=== PATIENT | female | born 1985 | race Caucasian/White ===

== ENCOUNTER 2017-07-04 11:04 | Inpatient (IN) | payer MEDICAID, OTHER ==
[2017-07-04] MEDS ORDERED: KETAMINE 500 MG/10 ML VIAL IM ONE ×2 (11:06)
--- NOTE | 2017-07-04 11:22 | EDPHY ---
H & P Time Seen by Provider: 07/04/17 11:06 Constitutional: Initial Vital Signs Temperature (C) 36.5 C 07/04/17 11:06 Heart Rate 90 07/04/17 11:06 Respiratory Rate 16 07/04/17 11:06 Blood Pressure 126/92 H 07/04/17 11:06 O2 Sat (%) 98 07/04/17 11:06 O2 Delivery Mode Room Air Allergies/Adverse Reactions: Unable to Assess Allergy (Unverified 07/04/17 11:38) Home Medications: Medication Instructions Recorded Unobtainable 07/04/17 Medical Decision Making ED Course/Re-evaluation: CHIEF COMPLAINT: Psychiatric evaluation HISTORY OF PRESENT ILLNESS: 40-year-old female who is not giving us her name. She was at a [employer] acting out. The police were called. She would not leave. They brought her here. She apparently attempted to grab 1 of the officers testicles. She was brought in restraints here. She is uncontrollable and belligerent and noncooperative and is requiring 4 point restraints still. She will not answer any questions. REVIEW OF SYSTEMS: A 10 point review of systems was performed but the patient will not answer any questions PHYSICAL EXAM: General Appearance: Alert, well hydrated, appropriate, and non-toxic appearing. She is unkept and dirty Head: Atraumatic without scalp tenderness or obvious injury Eyes: Pupils equal, round, reactive to light and accommodation, EOMI, no trauma , no injection. Ears: Clear bilaterally, no perforation, normal landmarks Nose: Atraumatic, no rhinorrhea, clear. Throat: There is no erythema or exudates, no lesions, normal tonsils, mucus membranes moist. Neck: Supple, 2+ carotid upstroke, nontender, no lymphadenopathy. Respiratory: No retractions, no distress, no wheezes, and no accessory muscle use. Lungs are clear to auscultation bilaterally. Cardiovascular: Regular rate and rhythm, no murmurs, rubs, or gallops. Bilateral carotid, radial, dorsalis pedis, and posterior tibial pulses intact. Good capillary refill all extremities. Gastrointestinal: Abdomen is soft, nontender, non-distended, no masses, no rebound, no guarding, no peritoneal signs. Musculoskeletal: Normal active ROM of all extremities, atraumatic. Neurological: Alert, appropriate, and interactive. The patient has normal DTRs and non-focal cranial nerves, motor, sensory, and cerebellar exam. Skin: No rashes, good turgor, no nodules on palpation. Past medical history: Will not answer Past surgical history: Will not answer Family history: Will not answer Social history: Will not answer DIFFERENTIAL DIAGNOSIS: The differential diagnosis for the patient's depression included but was not limited to functional and major depression, situational depression, medication side effect, drugs, and alcohol abuse. MEDICAL DECISION MAKING: Patient is extremely uncooperative and belligerent requiring four-point restraints for her own safety and the safety of the staff in the department. I have also given her 150 mg of intramuscular ketamine to calmed her down and is working nicely. We are getting her cleaned up, establishing IV access, and obtaining urinalysis. We are awaiting psychiatric team's evaluation. Patient has known history of psychiatric disorders and is here for evaluation. (Juan De Dios) 3:00 p.m.-I assumed care of this patient at shift change. She is on an M1 hold for grave disability. She has been given ketamine, Zyprexa and Zofran. She is currently resting comfortably with her eyes closed. 9pm-medically cleared for MH evaluation. (Corinne Rodriguez) [id number]: Patient Gravely disabled. on M1 hold. Patient signed over to Dr. Mccarthy at 7am shift-change. (Misael Loya) I assumed care at 7:00 a.m.. Patient has remained stable. She has been evaluated and accepted for admission at [address] (Santana Mccarthy) - Data Points Laboratory Results: Laboratory Results 07/04/17 11:30 07/04/17 11:30 Medications Given: Discontinued Medications Ketamine HCl (Ketamine) 50 mg IM EDNOW ONE Stop: 07/04/17 11:07 Last Admin: 07/04/17 11:37 Dose: Not Given Ketamine HCl (Ketamine) 150 mg IM EDNOW ONE Stop: 07/04/17 11:07 Last Admin: 07/04/17 11:10 Dose: 150 mg Olanzapine (Zyprexa Zydis) 10 mg PO EDNOW ONE Stop: 07/04/17 13:08 Last Admin: 07/04/17 13:14 Dose: 10 mg Ondansetron HCl (Zofran Odt) 4 mg PO EDNOW ONE Stop: 07/04/17 13:09 Last Admin: 07/04/17 13:15 Dose: 4 mg Departure - Departure Disposition: [facility] IP Clinical Impression: Acute psychosis Condition: Fair Referrals: Patient,NotPresent [Primary Care Provider] - As per Instructions
[2017-07-04 11:45] LABS: PLATELET COUNT 355 10^3/uL (150-400)
[2017-07-04] MEDS ORDERED: OLANZapine DISINTEGR 10 MG TAB PO ONE (13:07)
[2017-07-04] MEDS ORDERED: ONDANSETRON DISINTEGRATING 4 MG TAB PO ONE (13:08)
[2017-07-05] MEDS ORDERED: OLANZapine DISINTEGR 5 MG TAB PO ONE (10:35)
[2017-07-05] MEDS ORDERED: ACETAMINOPHEN 325 MG TAB PO PRN (11:34)
[2017-07-05] MEDS ORDERED: MAG HYDROX/AL HYDROX/SIMETH 30 ML UDCUP PO PRN (11:34)
[2017-07-05] MEDS ORDERED: MAGNESIUM HYDROXIDE 30 ML UDCUP PO PRN (11:34)
[2017-07-05] MEDS ORDERED: NICOTINE POLACRILEX 2 MG GUM B PRN (11:34)
[2017-07-05] MEDS ORDERED: LORazepam 0.5 MG TAB PO PRN (11:34)
[2017-07-05] MEDS ORDERED: OLANZapine DISINTEGR 10 MG TAB PO PRN (11:34)
[2017-07-05] MEDS ORDERED: OLANZapine 10 MG/2 ML VIAL IM PRN (11:38)
[2017-07-05] MEDS ORDERED: LORazepam 2 MG/ML INJ IM PRN (11:38)
[2017-07-05] MEDS: OLANZapine DISINTEGR 10 MG TAB PO SCH ×2 (12:30→21:40)
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
--- NOTE | 2017-07-05 23:54 | BCON ---
[f rep ] BEHAVIORAL HEALTH CONSULTATION INTERNAL MEDICINE CONSULTATION DATE OF CONSULTATION: 07/05/2017 REFERRING PHYSICIAN: RAMESH GONZALEZ MD REASON FOR REFERRAL: Medical clearance for inpatient behavioral health stay. HISTORY OF PRESENT ILLNESS: This patient was brought to the emergency department by police, having been disruptive at a [employer]. She was assaultive toward the police and brought to the emergency department in restraints. There, she required 4-point restraints and was treated with medications including ketamine and olanzapine. Eventually, she stabilized and was evaluated by the mental health team, after which she was admitted to Inpatient Behavioral Health for further psychiatric care. Currently, she reports that she is sleepy. She otherwise denies any medical complaints. PAST MEDICAL HISTORY: She reports depression and schizophrenia. She denies any history of medical illnesses or surgeries. MEDICATIONS: She was on no medications. ALLERGIES: There is an allergy listed to morphine. SOCIAL HISTORY: She is homeless. She is a tobacco smoker. She has been twice, 1 ex- lives in [place] and has custody of her 9-year-old daughter. FAMILY HISTORY: There is a family history of psychiatric issues and substance abuse. REVIEW OF SYSTEMS: Limited due to somnolence. However, she denies pain, cough or dyspnea. She reports that she is thirsty and hungry. PHYSICAL EXAM: VITAL SIGNS: Blood pressure is 119/67, heart rate is 63, respiratory rate is 12, oxygen saturation 97% on room air. Temperature is 36.5 degrees centigrade. Her weight is 51.3 kg for a body mass index of 20. GENERAL : This is a thin woman, appears her chronologic age, unkempt, sleepy, awakens, but is drowsy through the exam. Overall cooperative and in no acute distress. HEENT: Extraocular movements are intact. Pupils are equal, round, reactive to light. Mucous membranes are moderately dry. She has an uncrowded airway, Mallampati class 1. NECK: Supple. HEART: There is a regular rate and rhythm. She is tachycardic. There are no murmurs, rubs, or gallops. LUNGS: Clear to auscultation bilaterally. ABDOMEN: Benign. NEUROLOGIC: She is alert. Orientation was not checked. Cranial nerves are 2 through 12 are grossly intact. There is no focal weakness. Sensation is intact to light touch. LABORATORY STUDIES: From the emergency department, CBC was overall within normal limits. She had an elevation of relative lymphocytes and a decrement of relative eosinophils, and absolute lymphocytes were slightly elevated at 4.59 with the upper limit of normal being 3. Serum chemistry revealed a slightly low carbon dioxide of 21, slightly elevated anion gap and elevated glucose at 106, though this was likely not fasting. Otherwise, renal function and electrolytes were within normal limits. Beta hCG was negative for . Toxicology screen in the serum was negative for salicylates, acetaminophen or ethyl alcohol, and the urine was non negative for marijuana but otherwise negative for substances of abuse. ASSESSMENT/RECOMMENDATIONS: 1. Mental health issues, pending further evaluation and management per Psychiatry and the mental health team. 2. Tobacco dependence syndrome. Encouraged smoking cessation. 3. Lymphocytosis without an elevated white blood cell count, of unclear clinical significance. She can have followup with the primary care after discharge. 4. No obvious symptoms of hyperthyroidism or hypothyroidism. However, given her relatively low body mass index and her psychiatric issues, agree with determination of a TSH as ordered by Psychiatry. I see no medical contraindications to this patient's continued stay on the inpatient behavioral health unit or to any psychiatric medications or procedures. Thank you very much for including me in the care of this patient. Please do not hesitate to contact me or the hospitalist service should there be need for further medical evaluation. /[id number]/MODL MTDD
[2017-07-06] MEDS: OLANZapine DISINTEGR 10 MG TAB PO SCH ×2 (10:22→19:21)
[2017-07-06] MEDS: hydrOXYzine HCL 25 MG TAB PO PRN (10:22)
--- NOTE | 2017-07-06 13:18 | SOAPPROG ---
SOAP Progress Note Assessment/Plan: Assessment: Schizoaffective Disorder bipolar type versus Schizophrenia Cannabis Use Disorder - Mild Nicotine Use Disorder - Mild - PRN nicotine gum ordered Patient is calm but disorganized and paranoid and appears bizarre. Plan: Short Term Certification EMED DAY TWO Olanzapine 20mg QHS; Olanzapine 10mg [id number] PRN agitation/psychosis Olanzapine 10mg IM if refusing PO Continue Hydroxyzine 25mg PRN anxiety/insomnia Refer to [facility] Reviewed diagnosis, treatment recommendations, [facility] for homelessness Monitor behavior, impulse control, psychosis 07/06/17 13:21 Subjective: CC: "I'm great and fine" Patient reports she is willing to take Zyprexa but doesn't believe she needs this medication or outpatient treatment. Reports she is 'trying to escape [employer]" and "the government is after me" and "the staff are harassing me and the pharmaceutical companies are experimenting on me and making money off me.' Denies excessive sedation. Denies violent or suicidal thoughts. No somatic complaints. Objective: Vital Signs Temp Pulse Resp BP Pulse Ox 36.5 C 65 14 101/59 L 94 07/05/17 12:28 07/06/17 06:00 07/06/17 06:00 07/06/17 06:00 07/06/17 06:00 Alert thin WF, ambulatory, thin, dirty hands. Unkempt hair. Disorganized journaling and shuffling papers. Speech irregular rhythm. Thoughts disorganized with loose associations. Mood " I'm great and fine" Affect bizarre, irritable. Paranoid statements about being chased, needing to escape [employer], claiming staff are harassing her and experimenting on her. Denies SI or HI. Denies AH. limited insight. Questionable judgment. Staff report patient slept 8 hours. Cooperated with Zyprexa last night and this AM. Disorganized behavior on unit. - Time Spent With Patient Time Spent With Patient: 15 minutes - Pending Discharge Pending Discharge Within 24 Hours: No Pending Discharge Within 48 Hours: No ICD10 Worksheet Patient Problems: Problems Problem Status Onset Acute psychosis Acute Cannabis abuse Acute Posttraumatic stress disorder Acute Schizoaffective disorder Acute
--- NOTE | 2017-07-07 08:45 | SOAPPROG ---
SOAP Progress Note Assessment/Plan: Assessment: Schizoaffective Disorder bipolar type versus Schizophrenia PTSD Cannabis Use Disorder - Mild Nicotine Use Disorder - Mild - PRN nicotine gum ordered Patient has some continued disorganization, paranoia, and irritability but appears much improved and more appropriate. Plan: Short Term Certification Discontinue EMEDS Schedule Hydroxyzine 25mg BID for anxiety/PTSD Continue Olanzapine 20mg QHS Check AM lipids, HgbA1c Monitor mood stability, impulse control, paranoia, ability to function appropriately in group 07/07/17 08:46 Subjective: CC: "A little better, not as scared." Patient reports improved mood and sleep with Zyprexa and reduced anxiety with PRN Hydroxyzine. Reports goal is to stay in [place] and follow [facility] program. Denies feeling sedated or slowed. Reports being fearful that she is being stalked and someone is trying to harm her. Denies violent or suicidal thoughts on the unit. Reports difficulty attending groups due to fear and anxiety. Endorses continued mood swings and irritability. Reports her goal is 'to heal my wounds' and eventually reconnect with daughter in [place]. Objective: Vital Signs Temp Pulse Resp BP Pulse Ox 36.7 C 70 14 107/58 L 92 07/07/17 06:00 07/07/17 06:00 07/07/17 06:00 07/07/17 06:00 07/07/17 06:00 Alert thin WF. Mostly calm during interview but briefly agitated when talking about family. Speech RRR, loud at times. Labile affect - smiling with humor, later dysphoric and tearful, later irritable. Denies SI or HI. Denies AH. Described paranoia that people are stalking her and trying to harm her. Thoughts mostly organized but some loose associations. Mood 'a little better, not as scared.' Insight limited judgment questionable. - Time Spent With Patient Time Spent With Patient: 15 minutes - Pending Discharge Pending Discharge Within 24 Hours: No Pending Discharge Within 48 Hours: No ICD10 Worksheet Patient Problems: Problems Problem Status Onset Acute psychosis Acute Cannabis abuse Acute Posttraumatic stress disorder Acute Schizoaffective disorder Acute
[2017-07-07] MEDS: hydrOXYzine HCL 25 MG TAB PO PRN ×2 (08:49→14:57)
[2017-07-07] MEDS: hydrOXYzine HCL 25 MG TAB PO SCH ×2 (09:02→20:38)
[2017-07-07] MEDS: OLANZapine DISINTEGR 10 MG TAB PO SCH (20:38)
[2017-07-08] MEDS: hydrOXYzine HCL 25 MG TAB PO SCH ×3 (08:35→20:06)
[2017-07-08] MEDS: hydrOXYzine HCL 25 MG TAB PO PRN (08:36)
--- NOTE | 2017-07-08 08:47 | SOAPPROG ---
SOAP Progress Note Assessment/Plan: Assessment: Schizoaffective Disorder bipolar type versus Schizophrenia PTSD Cannabis Use Disorder - Mild Nicotine Use Disorder - Mild - PRN nicotine gum ordered Homeless, no income, no supports Patient is calm with better insight but complains of anxiety; has severe stressors. Continued tangential and disorganized thinking at times, irritable and labile on unit at times, but cooperative with medication and able to attend most groups. Plan: Short Term Certification If having improved thought organization and mood stability will convert to voluntary Increase Hydroxyzine 50mg BID for anxiety/PTSD, discussed risk of constipation, urinary retention, confusion Continue Olanzapine 20mg QHS, discussed risk of TD, metabolic syndrome, NMS AM lipids, HgbA1c pending Monitor mood stability, impulse control, thought organization, ability to function appropriately in group Probable discharge Wednesday07/12/17 to [facility] intake if stable over next 3 days 07/08/17 08:50 Subjective: CC: "Anxious sometimes, better" Patient reports overall feeling improved. Reports goal of getting stable housing and in the longer term returning to [place] to be near her daughter. Reports anxiety and fear of being harmed, denies feeling that anyone in particular is trying to harm her. Reports reduced anxiety for 2 hours after 25mg Hydroxyzine. Reports brief mood swings but overall feels more hopeful. Makes odd statements about music, art, and connections with random people. Denies constipation, difficulty urinating, or feeling sedated/tired. Objective: Vital Signs Temp Pulse Resp BP Pulse Ox 36.7 C 74 12 112/63 93 07/07/17 06:00 07/08/17 06:00 07/08/17 06:00 07/08/17 06:00 07/08/17 06:00 Alert thin WF. Cooperative, mostly calm. Speech RRR. Thoughts mostly organized but tangential with loose associations at times. Denies SI or HI or AH. Denies paranoia but makes odd statements. Mood 'anxious sometimes, better ' Affect labile - sad/dysphoric briefly, later smiling with humor. Insight improved. Judgment questionable. Staff report patient cooperative with medication and attending most groups. Observed to be irritable and disorganized at times, other times tangential and hyperreligious and complaining of anxiety. - Time Spent With Patient Time Spent With Patient: 20 minutes - Pending Discharge Pending Discharge Within 24 Hours: No Pending Discharge Within 48 Hours: No ICD10 Worksheet Patient Problems: Problems Problem Status Onset Acute psychosis Acute Cannabis abuse Acute Posttraumatic stress disorder Acute Schizoaffective disorder Acute
[2017-07-08] MEDS: OLANZapine DISINTEGR 10 MG TAB PO PRN (15:04)
[2017-07-08] MEDS: OLANZapine DISINTEGR 10 MG TAB PO SCH (20:06)
[2017-07-09 06:42] VITALS: RESP 14
--- NOTE | 2017-07-09 08:41 | SOAPPROG ---
SOAP Progress Note Assessment/Plan: Assessment: Schizoaffective Disorder bipolar type versus Schizophrenia PTSD Cannabis Use Disorder - Mild Nicotine Use Disorder - Mild - PRN nicotine gum ordered Homeless, no income, no supports Patient is calm with better insight but some residual symptoms. Plan: Short Term Certification If having improved thought organization and mood stability will convert to voluntary Continue Hydroxyzine 50mg BID for anxiety/PTSD, discussed risk of constipation, urinary retention, confusion Start Senokot for possible constipation Continue Olanzapine 20mg QHS, discussed risk of TD, metabolic syndrome, NMS Reviwed normal ipids, HgbA1c results with patient Monitor mood stability, impulse control, thought organization, ability to function appropriately in group Probable discharge Wednesday07/12/17 to [facility] intake if stable over next 3 days 07/09/17 08:40 Subjective: CC: "Great" Patient reports sleeping well. Possible mild constipation. Denies feeling slowed or tired. Reports willingness to obtain outpatient MH but unwilling to be referred to any type of residential facility. Reports fear that others may harm her but no one on particular. Reports mood is improved. Denies violent or suicidal thoughts. Denies feeling agitated or irritable. Objective: Vital Signs Temp Pulse Resp BP Pulse Ox 36.6 C 79 14 98/53 L 95 07/09/17 06:00 07/09/17 06:00 07/09/17 06:00 07/09/17 06:00 07/09/17 06:00 Alert thin WF. Cooperative and calm. Speech RRR. Mood 'great' affect euthymic but anxious at times. Thoughts organized but occasional loose association and brief paranoid statements. No fixed delusions. Denies AH or SI or HI. Insight limited. Staff report patient cooperative and calm on unit but irritable and tangential at times; slept overnight and cooperative with medications. - Time Spent With Patient Time Spent With Patient: 20 minutes - Pending Discharge Pending Discharge Within 24 Hours: No Pending Discharge Within 48 Hours: No ICD10 Worksheet Patient Problems: Problems Problem Status Onset Acute psychosis Acute Cannabis abuse Acute Posttraumatic stress disorder Acute Schizoaffective disorder Acute
[2017-07-09] MEDS: hydrOXYzine HCL 25 MG TAB PO SCH ×2 (08:52→20:22)
[2017-07-09] MEDS: SENNOSIDES 1 TAB PO SCH ×2 (12:07→20:22)
[2017-07-09] MEDS: OLANZapine DISINTEGR 10 MG TAB PO SCH (20:22)
[2017-07-10] MEDS: hydrOXYzine HCL 25 MG TAB PO SCH ×2 (08:35→19:48)
[2017-07-10] MEDS: OLANZapine DISINTEGR 10 MG TAB PO PRN (08:36)
[2017-07-10] MEDS: SENNOSIDES 1 TAB PO SCH ×2 (08:38→19:48)
[2017-07-10] MEDS: hydrOXYzine HCL 25 MG TAB PO PRN (12:38)
--- NOTE | 2017-07-10 14:16 | SOAPPROG ---
SOAP Progress Note Assessment/Plan: Assessment: Per Dr. Patrick's note: Assessment: Schizoaffective Disorder bipolar type versus Schizophrenia PTSD Cannabis Use Disorder - Mild Nicotine Use Disorder - Mild - PRN nicotine gum ordered Homeless, no income, no supports Patient is calm with better insight but some residual symptoms. Plan: Short Term Certification If having improved thought organization and mood stability will convert to voluntary Continue Hydroxyzine 50mg BID for anxiety/PTSD, discussed risk of constipation, urinary retention, confusion Start Senokot for possible constipation Continue Olanzapine 20mg QHS, discussed risk of TD, metabolic syndrome, NMS Reviwed normal ipids, HgbA1c results with patient Monitor mood stability, impulse control, thought organization, ability to function appropriately in group Probable discharge Wednesday07/12/17 to [facility] intake if stable over next 3 days Plan: 07/10/17 14:08 1. Patient much less hyperactive and elevated today. She presents calmer and more emotionally stable. 2. Continue on ISP. 3. Slept 11.5 hrs last night. 4. Compliant with meds - no changes Subjective: Met with patient, reviewed chart and d/w staff. Patient presents pleasant, calm , normal rate and volume of speech. She says her mood is "emotionally sound." She says it's been helpful for her to "open up about the skeletons in my closet " while she's been on unit. She reports feeling "more positive" about her discharge plan. She denies any SI/HI, no AH/VH. Objective: Vital Signs Temp Pulse Resp BP Pulse Ox 36.6 C 73 14 113/61 98 07/10/17 06:00 07/10/17 06:00 07/10/17 06:00 07/10/17 06:00 07/10/17 06:00 MSE: Affect: Euthymic Mood: "Sound" TP: Linear, goal-directed TC: Denies any SI/HI, no AH/VH Insight/Judgment: Improved - Time Spent With Patient Time Spent With Patient: 20" - Pending Discharge Pending Discharge Within 24 Hours: No Pending Discharge Within 48 Hours: No ICD10 Worksheet Patient Problems: Problems Problem Status Onset Acute psychosis Acute Cannabis abuse Acute Posttraumatic stress disorder Acute Schizoaffective disorder Acute
[2017-07-10] MEDS: OLANZapine DISINTEGR 10 MG TAB PO SCH (19:48)
[2017-07-11 06:32] VITALS: TEMP 97.8
[2017-07-11] MEDS: hydrOXYzine HCL 25 MG TAB PO SCH ×2 (08:08→20:45)
[2017-07-11] MEDS: OLANZapine DISINTEGR 10 MG TAB PO PRN (08:09)
[2017-07-11] MEDS: SENNOSIDES 1 TAB PO SCH ×2 (08:10→20:45)
--- NOTE | 2017-07-11 13:17 | SOAPPROG ---
SOAP Progress Note Assessment/Plan: Assessment: Per Dr. Patrick's note: Assessment: Schizoaffective Disorder bipolar type versus Schizophrenia PTSD Cannabis Use Disorder - Mild Nicotine Use Disorder - Mild - PRN nicotine gum ordered Homeless, no income, no supports Patient is calm with better insight but some residual symptoms. Plan: Short Term Certification If having improved thought organization and mood stability will convert to voluntary Continue Hydroxyzine 50mg BID for anxiety/PTSD, discussed risk of constipation, urinary retention, confusion Start Senokot for possible constipation Continue Olanzapine 20mg QHS, discussed risk of TD, metabolic syndrome, NMS Reviwed normal ipids, HgbA1c results with patient Monitor mood stability, impulse control, thought organization, ability to function appropriately in group Probable discharge Wednesday07/12/17 to [facility] intake if stable over next 3 days Plan: 07/10/17 14:08 1. Patient much less hyperactive and elevated today. She presents calmer and more emotionally stable. 2. Continue on ISP. 3. Slept 11.5 hrs last night. 4. Compliant with meds - no changes 07/11/17 13:14 1. Patient slept 12.5 hrs last night. No s/s of manjit last 2 days. 2. Patient says things are going "really well." She says she wants to go to "[facility]" senior living on [address] when she leaves. MD asked if she's contacted the program, and she says "not yet." 3. CCM - no change Subjective: Met with patient, reviewed chart and d/w staff. Patient is smiling, cheerful, pacing in hallway. She says things are going "really well." She wants to stay at [facility] senior living after d/c. She says she wants to get a job working for [employer]. MD mentioned these jobs might not be available in Winter. Patient says, "I'm really good at trimming weeds." Objective: Vital Signs Temp Pulse Resp BP Pulse Ox 36.6 C 78 14 108/58 L 93 07/11/17 06:00 07/11/17 06:00 07/11/17 06:00 07/11/17 06:00 07/11/17 06:00 MSE: Affect: Euthymic Mood: "Really good" TP: Linear, goal-directed TC: Denies any SI/HI, no psychosis Insight/Judgment: Improved - Time Spent With Patient Time Spent With Patient: 20" - Pending Discharge Pending Discharge Within 24 Hours: No Pending Discharge Within 48 Hours: No ICD10 Worksheet Patient Problems: Problems Problem Status Onset Acute psychosis Acute Cannabis abuse Acute Posttraumatic stress disorder Acute Schizoaffective disorder Acute
[2017-07-11] MEDS: OLANZapine DISINTEGR 10 MG TAB PO SCH (20:45)
[2017-07-12 06:29] VITALS: BP 105/59; PULSE 80; O2SAT 95
[2017-07-12] MEDS: OLANZapine DISINTEGR 10 MG TAB PO PRN (08:11)
[2017-07-12] MEDS: SENNOSIDES 1 TAB PO SCH (08:11)
[2017-07-12] MEDS: hydrOXYzine HCL 25 MG TAB PO SCH (08:12)
--- NOTE | 2017-07-12 08:27 | BDS ---
[f rep st] BEHAVIORAL HEALTH DISCHARGE SUMMARY ADMITTING DIAGNOSES: Schizoaffective disorder, bipolar type; posttraumatic stress disorder; cannabis use disorder; severe homelessness, no income, no supports. IDENTIFICATION: This is a 31-year-old white female who is homeless, who has a history of severe mental illness. The patient's parents, her estranged , and her 9-year-old daughter live in [place]. BRIEF PSYCHIATRIC HISTORY: The patient reported 12 psychiatric hospitalizations in [place] and [place] as well as a hospitalization in [place] within the past 3 months. She had been in [place] for about 3 months. She denied history of suicide attempts or violence toward others, but does report a past history of being in seclusion and restraints during psychiatric hospitalizations in the past. She denied being on parole or probation or having a history of violent crimes. She reported past diagnoses of schizophrenia, bipolar disorder, and posttraumatic stress disorder. She has been on multiple antipsychotic medications in the past including Zyprexa and Seroquel. She was not in outpatient mental health treatment prior to admission or taking any psychiatric medications prior to admission. She was using cannabis daily prior to admission. PAST MEDICAL HISTORY: She denied chronic medical problems. She does have a history of 1 concussion in 2008. ALLERGIES: She has listed allergy to morphine. She has a history of non- allergic adverse drug reaction to benzodiazepines including being disinhibited with benzodiazepine. REASON FOR ADMISSION: The patient apparently had destructive behavior in a [employer] coffee shop. When confronted by police, she was combative with police. She actually grabbed a security police officer's genitals. In the emergency room, she was in restraints and got Zyprexa, Ativan, and ketamine IM for agitation. She apparently made suicidal statements in the emergency room and was combative. She was admitted to the inpatient psychiatric unit on an M1 hold. INITIAL EXAM: She was an alert, thin, white female who was extremely disheveled and malodorous with dirt on her hands, multiple tattoos. She was thin. She was agitated. She had loud rambling and tangential speech. She denied further thoughts to hurt herself or others on the inpatient unit. Her thoughts were disorganized with loose associations. She had paranoid ideas of reference and auditory hallucinations. She was oriented to month, year, and location. She had poor insight and impaired judgment. She was ambulatory without weakness or tremors. She appeared very thin. HOSPITAL COURSE: The patient was on an M1 hold and then placed on short-term certification for grave disability from mixed manic and psychotic symptoms. The patient was restarted on Zyprexa. This was eventually titrated up to 20 mg at night. The patient had a marked improvement. She became more calm, less tangential, less loud, more organized, remission of her paranoid ideas of reference, remission of her auditory hallucinations. She also had improved thought organization and more appropriate behavior. She was able to eat well, sleep well, attend groups, and act appropriately on the unit. The patient was on inappropriate sexual behavior precautions as well as assault awareness precautions during her hospitalization. The patient was started on hydroxyzine for posttraumatic stress disorder and anxiety. This was increased up to 50 mg twice a day. She was started on Senokot for possible constipation. The patient had a marked improvement in insight and self-awareness that she had a mental illness and needs support. The patient was agreeable to follow up at [facility] after discharging and stay in a care home temporarily until [facility] was able to get her social security disability and assist her in getting into a long-term half-way. The patient was given information about the dangers of cannabis including anxiety, paranoia, and psychosis. The patient tolerated medications and was able to have improved reality testing and able to engage in discharge planning with the inpatient team. During the course of hospitalization, the patient consistently denied any thoughts to hurt herself or others. She was able to calmly attend groups and interact appropriately with other patients and staff. The patient repeatedly refused to have assistance in returning to [place] where her parents , her estranged , and her 9-year-old daughter live. The patient was given information about [facility] as well as [facility] for followup medical care. The patient was given information about the risks of Zyprexa including tardive dyskinesia, weight gain , diabetes, metabolic syndrome, defects, and sedation. She was given information about the risks of hydroxyzine causing confusion, constipation, urinary retention, defects, and sedation. CONSULTS: The patient was seen on July 05, 2017, by Dr. Myrick for a hospitalist exam for baseline physical exam. PROCEDURES: None. LABS: There are no labs pending. The patient had a white blood cell count 9.4 , hemoglobin 14.7, platelet count 355. Sodium 143, potassium 3.8, creatinine 0.6, glucose 106, calcium 9.7, hemoglobin A1c 5.3, AST 43, ALT 47, triglyceride 71, LDL 86, HDL 53, TSH 3.3. Serum beta HCG was negative. Urine drug screen was positive for cannabis only. Negative for other drugs of abuse. Negative for alcohol. Negative for acetaminophen and salicylates. CONDITION AT DISCHARGE: She is an alert, thin, white female in no acute distress. She is ambulatory, cooperative, and pleasant. She has good eye contact. She has improved hygiene. Her speech is regular rate and rhythm. Her thoughts are briefly organized with limited information. She denies thoughts to hurt herself or others. She denies paranoia or hallucinations. She is oriented to month, year, and location. Her insight is fair. Her judgment is appropriate. She denies auditory hallucinations or paranoia. There are no evident delusions. Condition on discharge: The patient reports benefit from the current hospitalization and interest in engaging in outpatient treatment after discharge. DISCHARGE DIAGNOSES: Schizoaffective disorder, bipolar type; posttraumatic stress disorder; cannabis use disorder; homelessness, no income, no supports. DISPOSITION: The patient is leaving the unit this morning with her family day care worker and is walking across the street to an intake appointment at [facility]. FOLLOWUP: The patient was given referrals to [facility] for medical and psychiatric followup. LEGAL STATUS: She was admitted on an M1 hold and then placed on short-term certification. This will be terminated at discharge for her to receive outpatient treatment on a voluntary basis. DISCHARGE MEDICATIONS: Olanzapine 20 mg p.o. q.h.s., hydroxyzine 50 mg p.o. b.i.d., Senokot 1 tablet p.o. b.i.d. Of note, the prescriptions were written to be only filled at the [facility] at [facility] in weekly pill boxes. /[id number]/MODL MTDD
== END 2017-07-12 08:35 | disposition home or self-care (01) | DRG 885 ==
LOC: EEVIPCON 11:04 → BBEH 07-05 11:10
DX: F25.0 Schizoaffective disorder, bipolar type (principal); F43.10 Post-traumatic stress disorder, unspecified; F12.90 Cannabis use, unspecified, uncomplicated; F17.210 Nicotine dependence, cigarettes, uncomplicated; Z59.0 Homelessness; F51.05 Insomnia due to other mental disorder
CPT/HCPCS: 80305; G0480